=== PATIENT | female | born 1980 | race Caucasian/White ===

== ENCOUNTER 2017-04-14 10:27 | Emergency (ER) | payer OTHER | END 2017-04-14 12:50 | disposition left against medical advice (07) | LOC: UCCORT 10:27 | DX: R05 Cough (principal); R68.89 Other general symptoms and signs; Z53.21 Procedure and treatment not carried out due to patient leaving prior to being seen by health care provider ==

== ENCOUNTER 2017-04-14 12:40 | Emergency (ER) | payer OTHER | END 2017-04-14 16:01 | disposition left against medical advice (07) | LOC: UCCORT 12:40 | DX: R05 Cough (principal); R09.81 Nasal congestion; Z53.21 Procedure and treatment not carried out due to patient leaving prior to being seen by health care provider ==